=== PATIENT | male | born 1955 | race Caucasian/White ===

== ENCOUNTER 2024-01-17 18:36 | Emergency (ER) | payer SELFPAY ==
[2024-01-17 18:39] VITALS: BP 128/102
[2024-01-17 18:58] LABS: % Basophils 0.9 % (0-2); % Eosinophils 2.7 % (0-6); % Immature Granulocytes 0.6 % (0-0.5); % Lymphocytes 35.6 % (20.5-51.1); % Monocytes 7.9 % (1.7-9.3); % Neutrophils 52.3 % (42.2-75.2); Absolute Basophils 0.1 10^3/uL (0-0.2); Absolute Eosinophils 0.2 10^3/uL (0-0.7); Absolute Lymphocytes 2.4 10^3/uL (1.2-3.4); Absolute Monocytes 0.5 10^3/uL (0.1-0.6); Absolute Neutrophils 3.5 10^3/uL (1.4-6.5); Mean Corp Hgb Conc. 35.7 g/dL (33.0-37.0); Mean Corpuscular Hgb 32.5 pg (27.0-31.0); Mean Corpuscular Volume 91.1 fL (80.0-94.0); Mean Platelet Volume 8.7 fL (7.4-10.4); Nucleated Red Blood Cells % 0 % (-); Platelet Count 259 10^3/uL (130-400); Red Blood Cell Count 4.61 10^6/uL (4.70-6.10); Red Cell Dist. Width 12.4 % (11.5-14.5); White Blood Cell Count 6.6 10^3/uL (4.8-10.8)
[2024-01-17 19:10] LABS: Amphetamines Negative (Negative); Barbiturates Negative (Negative); Benzodiazepines Negative (Negative); Buprenorphine Negative (Negative); Cocaine Negative (Negative); Marijuana Negative (Negative); Methadone Negative (Negative); Methamphetamines Negative (Negative); Opiates Negative (Negative); Phencyclidine Negative (Negative); Tricyclic Antidepressants Negative (Negative)
[2024-01-17 19:12] LABS: Blood Urea Nitrogen 12 mg/dl (9-20); Carbon Dioxide 21 mmol/L (22-30); Chloride 107 mmol/L (98-107); Glucose 99 mg/dl (70-99); Potassium 4.6 mmol/L (3.5-5.1); Sodium 139 mmol/L (135-145); eGFR > 60.00
[2024-01-17 19:22] LABS: Alcohol 310 mg/dl
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
[2024-01-17 20:00] VITALS: BP 127/93
[2024-01-17] MEDS: VERSED 2 MG IM (20:01)
[2024-01-17 21:00] VITALS: BP 115/87
[2024-01-17 22:00] VITALS: BP 119/84
[2024-01-17] MEDS: ATIVAN 2 MG IV (23:34)
[2024-01-18] VITALS: BP 113/73
[2024-01-18 00:47] VITALS: BP 113/76
[2024-01-18] MEDS: MULTIVITAMIN 1011 ML IV (01:13)
[2024-01-18] MEDS: MULTIVITAMIN 1011 MG IV (01:13)
[2024-01-18 02:43] VITALS: BP 106/77
[2024-01-18 04:05] VITALS: BP 105/65
[2024-01-18 06:30] VITALS: BP 126/92
--- NOTE | 2024-01-18 07:05 | EDRN ---
Report received at shift change, pt is discharged, is able to go back to [facility] by [facility]. Pt ambulated with his walker with steady gait. Pt dressed, belongings given to patient, including 3 cellphones and foley.
== END 2024-01-18 07:19 | disposition home or self-care (01) ==
LOC: EMR 18:36
PROVIDERS: EMERGENCY PHYSICIAN Emergency Medicine
DX: F10.129 Alcohol abuse with intoxication, unspecified (principal)
CPT/HCPCS: 99283; 96374; 96372; 96361; 80048; 80306; 82077; 85025

== ENCOUNTER 2024-05-30 14:08 | Emergency (ER) | payer SELFPAY ==
[2024-05-30 14:28] VITALS: BP 129/77
[2024-05-30] MEDS: ATIVAN 2 MG IV (14:35)
--- NOTE | 2024-05-30 17:18 | ED.GENMED ---
History of Present Illness
General
Chief Complaint: Alcohol Problem
Time Seen by Provider: 05/30/24 14:31
History of Present Illness
History of Present Illness:
68-year-old male with reported history of alcohol abuse presenting after a fall. Patient was outside of a bar, had fallen, was belligerent, so medics called. Patient fell, striking his head in front of the medics. Patient confrontational on
arrival, does admit to alcohol abuse. No additional history obtained on arrival given patient's constitutional manner, cooperative
Past History
Past History
ED Past Medical History: Other (Alcoholism)
ED Past Surgical History: Other (Colon surgery)
Social History
Alcohol: Chronic alcoholic
Living: with roommate
Employment: Not employed
Phy Exam
Physical Exam
Physical Exam:
GENERAL: Alert , in no apparent distress
HEAD: 2 cm laceration above the right eyebrow
EYE: pupils equal and reactive
NECK: Supple, no significant adenopathy.
ENT: o/p clr, mmm.
CARDIAC: Regular rate and rhythm .
LUNGS: Clear breath sounds bilaterally, no acute respiratory distress, no wheezes/rales/rhonchi
ABDOMEN: Soft, without focal tenderness
NEUROLOGICAL: No focal neurologic deficit
SKIN: Warm and dry, skin intact.
MUSCULOSKELETAL: No edema, well perfused.
PSYCH: Normal and appropriate interaction.
Scores
Withdrawal Assessment of Alcohol
Withdrawal Assessment Completed?: Not applicable
Course
Orders/Labs/Results
Orders:
Orders
05/30/24 14:32
Lorazepam [Ativan] 2 mg IV NOW STA
05/30/24 15:03
CT Cervical Spine W/o Iv Contr Urgent
Comment:
Reason For Exam: fall, etoh
05/30/24 15:04
CT Head W/o Iv Contrast Urgent
Comment:
Reason For Exam: fall
05/30/24 18:35
Cervical Collar- Treatment ONCE
Collar Type: Soft Cervical Collar
Vital Signs
Initial and Last Documented VS:
Initial Vital Signs
Pulse Resp BP Pulse Ox
69 18 129/77 99
05/30/24 14:28 05/30/24 14:28 05/30/24 14:28 05/30/24 14:28
Last Documented Vital Signs
Pulse Resp BP Pulse Ox
78 18 129/77 95
05/30/24 18:16 05/30/24 14:28 05/30/24 14:28 05/30/24 18:16
Procedures
Laceration Closure
Right Upper Lateral Forehead:
Status of Wound: clean
Size of Wound in cm: 2
Preparation: cleaned with soap & water
Anesthesia: 1% Lidocaine
Type of Closure: single layer closure
Skin Closure Material: 5-0 prolene
Number of sutures: 4
MDM/Problems Addressed
MDM/Problems Addressed:
68-year-old male with history of alcohol abuse presenting after a witnessed fall outside of a bar. Vital signs are normal.
On exam, patient no acute distress, however belligerent requiring chemical sedation, unsuccessful verbal de-escalation. 2 mg of IM Ativan administered with appropriate response. Patient has head trauma, and given did not intoxication, plan for CT
brain and C-spine imaging. Patient admits to alcohol abuse prior to arrival. Additional advanced workup. Will continue to monitor for clinical sobriety
18:30 -CT brain without acute intracranial abnormality. CT cervical spine however is showing multilevel abnormality with concern for cord compression. Patient remains intoxicated, however denies any neck pain. Will discuss with neurosurgery at
[facility]
18:50-in discussion with Dr. Thorpe from [facility], plan for clearing collar once clinically sober, nothing operative on CT at this time.
20:15 -patient continues to clinically improve. Laceration repair. Please see procedure note. Again denies neck pain or numbness to his extremities. Will maintain cervical collar until clinically sober
21:00-patient up and ambulating. Collar removed, no tenderness of cervical spine. Again no focal neurologic deficits. Will stable for discharge. Alcohol cessation discussed. Return precautions indicated and patient verbalized understanding
*Critical Care Note
Total Time (30-74mins, 75-104mins- exclusive of procedures): Not Applicable
ED Attending Note
-
Portions of this chart may have been created with voice recognition software.� Occasional wrong word or��sound alike� substitutions may have occurred due to the inherent limitations of voice recognition software.
Discharge Plan
Departure
Patient Disposition: Home (Routine Discharge)
Date of Disposition: 05/30/24
Time of Disposition: 21:00
Patient with high blood pressure during this ER visit?: No
Condition: Good
Discharge Problem:
Alcohol intoxication, Facial laceration
Instructions: Alcohol Use Disorder (DC), Laceration
Prescriptions:
No Action
No Current Medications
0
Referrals:
UNKNOWN - PT NOT,INTERVIEWE [Family Provider] -
Activity Restrictions/Additional Instructions:
Please follow-up with your primary care doctor. Require suture removal in 5 to 7 days. Return to the emergency department with any development of headache, neck pain, numbness or tingling to your extremities, weakness or difficulty ambulating,
chest pain or difficulty breathing, development of fever
Interventions
Interventions:
*Risk Screen - Suicide Last Done: 05/30/24 15:30
*General Assessment Last Done: 05/30/24 15:30
*Neglect/Abuse Screening Last Done: 05/30/24 15:30
*ED COVID-19 Vaccine History Last Done: 05/30/24 15:30
*Nursing Disposition Last Done: 05/30/24 21:44
ED- Neurological Assessment Last Done: 05/30/24 14:38
ED-Psychological Assessment Last Done: 05/30/24 14:38
Discharge Date and Time
Discharge Date/Time: 05/30/24 21:45
Print Language: JORDANIAN
--- NOTE | 2024-05-30 21:43 | EDRN ---
PT CHANGED INDEPENDENTLY. AMBULATED WITH WATER AND STEADY GAIT ESCORTED BY SECURITY TO CALL FOR LYFT RIDE.
== END 2024-05-30 21:45 | disposition home or self-care (01) ==
LOC: EMR 14:08
PROVIDERS: EMERGENCY PHYSICIAN Student in an Organized Health Care Education/Training Program
DX: F10.229 Alcohol dependence with intoxication, unspecified (principal); S01.81XA Laceration without foreign body of other part of head, initial encounter; W18.30XA Fall on same level, unspecified, initial encounter; Y92.89 Other specified places as the place of occurrence of the external cause
CPT/HCPCS: 99284; 12011; 96374; 70450; 72125

== ENCOUNTER 2024-05-31 20:31 | Emergency (ER) | payer SELFPAY ==
[2024-05-31 20:35] VITALS: BP 100/74
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
== END 2024-05-31 21:30 ==
LOC: EMR 20:31
PROVIDERS: EMERGENCY PHYSICIAN Emergency Medicine
DX: F10.229 Alcohol dependence with intoxication, unspecified (principal); R45.1 Restlessness and agitation; Z65.3 Problems related to other legal circumstances
CPT/HCPCS: 99283

== ENCOUNTER 2024-06-01 01:25 | Emergency (ER) | payer SELFPAY ==
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
[2024-06-01 02:08] VITALS: BP 144/93
== END 2024-06-01 02:30 | disposition home or self-care (01) ==
LOC: EMR 01:25
PROVIDERS: EMERGENCY PHYSICIAN Student in an Organized Health Care Education/Training Program
DX: Z04.89 Encounter for examination and observation for other specified reasons (principal)
CPT/HCPCS: 99282

== ENCOUNTER 2024-11-28 09:34 | Emergency (ER) | payer OTHER, SELFPAY ==
[2024-11-28 09:50] VITALS: BP 114/81
--- NOTE | 2024-11-28 10:18 | ED.GENMED ---
History of Present Illness
General
Chief Complaint: Crisis Evaluation
Source: patient
Exam Limitations: none
Time Seen by Provider: 11/28/24 09:37
Nursing documentation reviewed up to this point in time: agreed with
History of Present Illness
History of Present Illness:
69-year-old male presents for evaluation apparently was argumentative with police getting off a train in [place] he tells me he tried to go to [place] on a train he speaks with pressured speech loudly, he is oriented, tells me that he is due
to get evicted from his home in a week or so, he is not happy about this, drinks alcohol states he is not drinking today,
Past History
Past History
ED Past Medical History: Other (Alcoholism)
ED Past Surgical History: Orthopedic (Right hip femoral neck repair) and Other (Colon surgery)
Social History
Tobacco: Non-smoker
Alcohol: Chronic alcoholic (Beer 1-2 )
Drug: None
Personal: Single
Living: with roommate
Employment: Not employed
Review of Systems
Review of Systems
All Other Systems: Not applicable
Psychiatric: Reports anxiety; Denies depression, suicidal or hallucinations
Phy Exam
Physical Exam
Physical Exam:
Physical Exam
General: Disheveled male but cooperative and redirectable
Neck: No jaundice
Heart: s1/s2 regular rate and rhythm, no murmur. equal radial pulses.
Lungs: no acute respiratory distress.
Neuro: alert and oriented. no focal neurological deficits
Skin: no rash
Psychiatric: Disheveled, cooperative not suicidal, angry that he is here
Extremities: no edema.
Course
Orders/Labs/Results
Orders:
Orders
11/28/24 10:32
PSYCHIATRY CONSULT Routine
Consulting Provider: Isaiah Rudolph
Was physician already notified: Yes
Vital Signs
Initial and Last Documented VS:
Initial Vital Signs
Temp Pulse Resp BP Pulse Ox
97.2 F 73 18 114/81 98
11/28/24 09:50 11/28/24 09:50 11/28/24 09:50 11/28/24 09:50 11/28/24 09:50
Last Documented Vital Signs
Temp Pulse Resp BP Pulse Ox
97.2 F 73 18 114/81 98
11/28/24 09:50 11/28/24 09:50 11/28/24 09:50 11/28/24 09:50 11/28/24 09:50
MDM/Problems Addressed
Differential Diagnosis Includes:
Anxiety, intoxication,
*Pulse Oximetry
Patient hypoxic: no
*Critical Care Note
Total Time (30-74mins, 75-104mins- exclusive of procedures): Not Applicable
Update Note
Update Note:
Update reviewed with [place] from crisis, 302 was completed by police, awaiting psychiatric evaluation
Patient seen by psychiatry cleared, going home via Lyft
ED Attending Note
-
Portions of this chart may have been created with voice recognition software.� Occasional wrong word or��sound alike� substitutions may have occurred due to the inherent limitations of voice recognition software.
Discharge Plan
Departure
Patient Disposition: Home (Routine Discharge)
Date of Disposition: 11/28/24
Time of Disposition: 11:38
Patient with high blood pressure during this ER visit?: No
Condition: Good
Discharge Problem:
Anxiety
Instructions: Anxiety, Adult (DC)
Prescriptions:
No Action
No Current Medications
0
Referrals:
UNKNOWN,NO INTERVIEW [Family Provider] -
Interventions
Interventions:
*Risk Screen - Suicide Last Done: 11/28/24 09:52
*General Assessment Last Done: 11/28/24 09:52
*ED COVID-19 Vaccine History Last Done: 11/28/24 09:50
ED-Psychological Assessment Last Done: 11/28/24 09:53
Discharge Date and Time
Print Language: WELSH
--- NOTE | 2024-11-28 13:52 | CS.PSYCHR ---
Consult Summary - Psychiatry
-
Pt is a 69 yo male, with history of alcohol use, brought in with back-up 302 petition written by police. Pt reportedly disruptive on [place] train, allegedly spilled beer. Police statement is vague, with no dangerous or threatening behavior noted,
only decreased hygiene apparently related to drinking. Pt seen, resting calmly on stretcher, answering questions, malodorous/smelling of urine. Pt speaks very loudly, but is cooperative, calm, coherent, somewhat repetitive. No labs done. Pt
denies any depression, denies suicidal/homicidal ideation.
Psych Hx: denied
Pt has ongoing alcohol use, record shows BAL 310 Jan 17, 2024 on ED visit
SH: pt reportedly lives in an apartment in [place], cannot drive due to hx of DUI's, takes Uber or [employer]
MSE: alert, oriented, calm, cooperative. Speech loud, coherent. No signs of psychosis. Denies S/H ideation. Insight limited
Imp: Alcohol Use d/o
Rec: Pt appears psychiatrically stable for discharge; does not present grounds for involuntary treatment
== END 2024-11-28 11:46 | disposition home or self-care (01) ==
LOC: EMR 09:34
PROVIDERS: CONSULT PHYSICIAN Psychiatry & Neurology Psychiatry; EMERGENCY PHYSICIAN Emergency Medicine
DX: F41.9 Anxiety disorder, unspecified (principal); F10.90 Alcohol use, unspecified, uncomplicated
CPT/HCPCS: 99283

== ENCOUNTER 2025-03-12 23:09 | Emergency (ER) | payer OTHER, SELFPAY ==
[2025-03-12 23:10] VITALS: BP 135/90
--- NOTE | 2025-03-12 23:19 | ED.MUSCINJ ---
HPI-Injury
General
Chief Complaint: Musculo-Skeletal Complaint
Source: patient
Exam Limitations: none
Time Seen by Provider: 03/12/25 23:17
Nursing documentation reviewed up to this point in time: agreed with
History of Present Illness-Injury
Initial Injury comments:
Pleasant 69-year-old male brought in by [facility] from [facility]. He allegedly was 'put into [facility] 'and he did not like [employer] [facility]. He began to protest by jumping up and down on the table. He was acting
aggressively in detention. He slipped from the table and landed on his right hip and knee. This was witnessed and he did not strike his head. He is here for medical clearance. Patient is very upset because he was incarcerated after being discharged
from a facility at [facility]. Patient states that he does not want to be in detention. Patient denies any other injury. He has ambulated after the fall to the ambulance.
Past History
Past History
ED Past Medical History: Other (Alcoholism)
ED Past Surgical History: Orthopedic (Right hip femoral neck repair) and Other (Colon surgery)
Social History
Tobacco: Non-smoker
Alcohol: Chronic alcoholic (Beer 1-2 )
Drug: None
Personal: Single
Living: with roommate
Employment: Not employed
Review of Systems
Review of Systems
Allergies reviewed?: Yes
Other source history: ambulance crew and guardian ([facility] guards)
All Other Systems: Not applicable
Constitutional: Reports no symptoms
Respiratory: Reports no symptoms
Cardiac: Reports no symptoms
ABD/GI: Reports no symptoms
: Reports no symptoms
Musculoskeletal: Reports joint pain, muscle pain and muscle stiffness
Skin: Reports no symptoms
Neurological: Reports no symptoms
Endocrine: Reports no symptoms
Hematologic/Lymphatic: Reports no symptoms
Psychiatric: Reports no symptoms
Phy Exam
General Physical Exam
General Presentation: well appearing
General age: appears older than age
General Skin: warm and dry
General Habitus: elderly
General Mental: alert
Neurological Exam
Neurological Exam: alert and oriented x3
Skin Exam
Skin Exam: normal color
Psychiatric Exam
Psychiatric Exam: normal mood/affect, agitated and labile
Injury Course
Orders/Labs/Results
Orders:
Orders
03/12/25 23:18
CR Hip - RT w/wo Pel 2-3 Vw* Urgent
Comment:
Reason For Exam: fell from table in detention
Include a pelvis x-ray?: Yes
Knee, Right 4 or More Views [CR Knee- Right 4 Or More View*] Urgent
Comment:
Reason For Exam: pain after falling, was ambulatory
*Radiology
Radiology exam reviewed: all reviewed NAD by ED Provider
*Pulse Oximetry
Patient hypoxic: no
*Critical Care Note
Total Time (30-74mins, 75-104mins- exclusive of procedures): Not Applicable
ED Attending Note
-
Portions of this chart may have been created with voice recognition software.� Occasional wrong word or��sound alike� substitutions may have occurred due to the inherent limitations of voice recognition software.
Discharge Plan
Departure
Patient Disposition: [facility]
Date of Disposition: 03/13/25
Time of Disposition: 00:06
Condition: Fair
Discharge Problem:
Musculoskeletal pain
Instructions: Muscle and Bone Pain (DC), Using Cold for Pain
Prescriptions:
No Action
No Current Medications
0
Activity Restrictions/Additional Instructions:
Patient is medically cleared for Incarceration
Your x-rays did not show any acute fracture.
Thank You for choosing [facility].
It was a pleasure meeting you and taking part in your care. We hope for your continued healing and wellness.
Please read discharge instructions in their entirety. However, they are for general education and may not describe your exact diagnosis at discharge. Information on your ER visit and medical conditions were discussed with you along with appropriate
follow up information...
If indicated, please take your medications as instructed and indicated on discharge paperwork.
Please schedule a follow up appointment as directed. Call to schedule an appointment
Please return to the emergency department with ANY change in, persisting, or worsening of symptoms. If any of your symptoms do not improve, or persist, or become more severe within 6-12 hours, please return to the emergency department for further
care.
Please return to the emergency department if you develop a headache, neck pain/stiffness, fever greater than 100.4F, chest pain, shortness of breath, persistent nausea, vomiting, slurred speech, difficulty walking, numbness/tingling, weakness, signs
of infection or any other symptoms that are worrisome to you.
If you have any questions or concerns please do not hesitate to call the Hospital at
Interventions
Interventions:
*Risk Screen - Suicide Last Done: 03/12/25 23:20
*General Assessment Last Done: 03/12/25 23:20
*Neglect/Abuse Screening Last Done: 03/12/25 23:20
*ED- Fall Risk Assessment Last Done: 03/12/25 23:20
ED-Musculoskeletal Assessment Last Done: 03/12/25 23:30
Discharge Date and Time
Print Language: CAYMAN ISLANDER
[2025-03-12 23:20] VITALS: BP 135/90
[2025-03-13 00:36] VITALS: BP 134/87
== END 2025-03-13 00:36 ==
LOC: EMR 23:09
PROVIDERS: EMERGENCY PHYSICIAN Student in an Organized Health Care Education/Training Program
DX: M25.551 Pain in right hip (principal); M79.661 Pain in right lower leg; M79.18 Myalgia, other site; W08.XXXA Fall from other furniture, initial encounter; R45.1 Restlessness and agitation; F10.20 Alcohol dependence, uncomplicated
CPT/HCPCS: 99283; 73502; 73564

== ENCOUNTER 2025-03-31 16:44 | Emergency (ER) | payer OTHER, SELFPAY ==
[2025-03-31 16:46] VITALS: BP 126/73
--- NOTE | 2025-03-31 19:46 | ED.GENMED ---
History of Present Illness
General
Chief Complaint: Suicidal Ideation
Source: patient and other (Nursing staff at [facility])
Time Seen by Provider: 03/31/25 17:09
History of Present Illness
History of Present Illness:
69-year-old male who apparently tried to hang himself clothing. He tied a knot around his neck. He had no hanging component and did not have to be saved from this episode. He states he fell and hit his back and right hip. No head injury neck
pain loss of consciousness or other complaints.
Past History
Past History
ED Past Medical History: Other (Alcoholism)
ED Past Surgical History: Orthopedic (Right hip femoral neck repair) and Other (Colon surgery)
Social History
Tobacco: Non-smoker
Alcohol: Chronic alcoholic (Beer 1-2 )
Drug: None
Personal: Single
Living: with roommate
Employment: Not employed
Review of Systems
Review of Systems
All Other Systems: Not applicable
Phy Exam
Physical Exam
Physical Exam:
GENERAL: Alert and oriented in no apparent distress. Normocephalic atraumatic
EYE: Orbits normal.
NECK: Supple, no signs of abrasion ecchymosis swelling
ENT: Pharynx without erythema. No drooling or stridor
CARDIAC: Regular rate and rhythm without any obvious murmurs.
LUNGS: Clear breath sounds,normal. Mild tenderness to the mid thoracic spine although no ecchymosis abrasion or swelling
ABDOMEN: Soft, without focal tenderness or distention
NEUROLOGICAL: Alert and oriented , grossly non-focal
SKIN: Warm and dry
MUSCULOSKELETAL: No edema,no deformity.Good color. No obvious point tenderness to the right hip. No pain with hip rotation. However patient states this is the area that hurts. Pelvis is stable.
PSYCH: Somewhat flight of ideas. Somewhat labile rambling speech
Course
Orders/Labs/Results
Orders:
Orders
03/31/25 17:41
CXR2 [CR Chest - 2 Views ] Urgent
Comment:
Reason For Exam: Mid back trauma
Hip, Right 2-3 Views [CR Hip - RT w/wo Pel 2-3 Vw*] Urgent
Comment:
Reason For Exam: trauma
Include a pelvis x-ray?: Yes
Vital Signs
Initial and Last Documented VS:
Initial Vital Signs
Temp Pulse Resp BP Pulse Ox
98.1 F 75 20 126/73 98
03/31/25 16:46 03/31/25 16:46 03/31/25 16:46 03/31/25 16:46 03/31/25 16:46
Last Documented Vital Signs
Temp Pulse Resp BP Pulse Ox
98.1 F 60 20 152/88 98
03/31/25 16:46 03/31/25 19:55 03/31/25 19:55 03/31/25 19:55 03/31/25 19:55
MDM/Problems Addressed
Differential Diagnosis Includes:
Discussed with the staff at the facility[facility]. I do not feel this was any significant neck injury trauma or suffocation. Clinically there is absolutely no findings to support a serious issue. Patient was not hanging. Also no signs of other
significant trauma. I discussed suicidal ideation which they do and can continue to do at the present.
*Radiology
Radiology exam reviewed: radiology read reviewed (No acute findings)
*Pulse Oximetry
Patient hypoxic: no
*Critical Care Note
Total Time (30-74mins, 75-104mins- exclusive of procedures): Not Applicable
ED Attending Note
-
Portions of this chart may have been created with voice recognition software.� Occasional wrong word or��sound alike� substitutions may have occurred due to the inherent limitations of voice recognition software.
Discharge Plan
Departure
Patient Disposition: [facility]
Date of Disposition: 03/31/25
Time of Disposition: 19:49
Patient with high blood pressure during this ER visit?: Yes
Discharge Problem:
Multiple contusions, Suicide attempt
Instructions: Suicide Prevention, BLOOD PRESSURE, Contusion
Prescriptions:
No Action
No Current Medications
0
Referrals:
[facility] [Family Provider] -
Activity Restrictions/Additional Instructions:
Patient should remain on suicide watch until cleared
Interventions
Interventions:
*Risk Screen - Suicide Last Done: 03/31/25 16:46
*General Assessment Last Done: 03/31/25 16:46
*Neglect/Abuse Screening Last Done: 03/31/25 16:46
*Nursing Disposition Last Done: 03/31/25 19:55
ED-Psychological Assessment Last Done: 03/31/25 17:00
Discharge Date and Time
Discharge Date/Time: 03/31/25 19:56
Print Language: BOLIVIAN
[2025-03-31 19:55] VITALS: BP 152/88
== END 2025-03-31 19:56 ==
LOC: EMR 16:44
PROVIDERS: EMERGENCY PHYSICIAN Emergency Medicine
DX: T14.91XA Suicide attempt, initial encounter (principal); M25.551 Pain in right hip; T14.8XXA Other injury of unspecified body region, initial encounter; X83.8XXA Intentional self-harm by other specified means, initial encounter; W19.XXXA Unspecified fall, initial encounter; R03.0 Elevated blood-pressure reading, without diagnosis of hypertension
CPT/HCPCS: 99283; 71046; 73502

== ENCOUNTER 2025-04-06 16:04 | Emergency (ER) | payer OTHER, SELFPAY ==
[2025-04-06] VITALS (7 sets, daily range): BP systolic 123–142; BP diastolic 82–99; BMI 17.3
--- NOTE | 2025-04-06 16:29 | ED.GENMED ---
History of Present Illness
General
Chief Complaint: Musculo-Skeletal Complaint
Source: patient
Exam Limitations: none
Time Seen by Provider: 04/06/25 16:20
History of Present Illness
History of Present Illness:
See MDM
Past History
Past History
ED Past Medical History: Other (Alcoholism)
ED Past Surgical History: Orthopedic (Right hip femoral neck repair) and Other (Colon surgery)
Social History
Tobacco: Non-smoker
Alcohol: Chronic alcoholic (Beer 1-2 )
Drug: None
Personal: Single
Living: with roommate
Employment: Not employed
Phy Exam
Physical Exam
Physical Exam:
See MDM
Course
Orders/Labs/Results
Orders:
Orders
04/06/25 16:24
Ibuprofen [Motrin] 600 mg PO NOW STA
Magnesium Citrate [Citroma] 300 ml PO ONCE ONE
Elbow, Left [CR Elbow - Left Min 3 Views ] Urgent
Comment:
Reason For Exam: fall, Left elbow pain
Hand, Left 3 View [CR Hand - Left Min 3 Views] Urgent
Comment:
Reason For Exam: fall, left hand pain
04/06/25 16:28
Forearm, Left 2 View [CR Forearm - Left 2 View] Urgent
Comment:
Reason For Exam: fall, left forearm pain
Vital Signs
Initial and Last Documented VS:
Initial Vital Signs
BP
130/82
04/06/25 16:12
Last Documented Vital Signs
Temp Pulse Resp BP Pulse Ox
98.2 F 64 12 123/93 98
04/06/25 16:16 04/06/25 17:00 04/06/25 16:31 04/06/25 17:00 04/06/25 16:16
MDM/Problems Addressed
Differential Diagnosis Includes:
HPI and MDM Narrative:
69-year-old male prisoner presenting from [facility] for evaluation of persistent left arm pain. Patient states he had a fall a few days ago and complains mostly of left elbow and forearm pain. On exam, he does have swelling
and bruising to the area. The extremity is neurovascularly intact. He has complaints of headache, neck pain, constipation, bilateral hip pain and right ankle pain. Those injuries are distractible. I can palpate the area without discomfort. He
is moving all extremities without difficulty.
Given the bruising and tenderness to left forearm and elbow, will obtain x-rays. He states he is taking laxatives without difficulty although there is stool noted. Will give dose of magnesium citrate. His abdomen is soft and nontender and there
is no clinical evidence small bowel obstruction
Physical exam
General: Well appearing and non-toxic
HEENT: protecting airway
Neck: Nontender, supple
CV: No evidence of cyanosis
Resp: No accessory muscle use
Abd: Non-distended. Soft and nontender
Extremities: Bruising and swelling noted to left elbow to dorsum of left hand. Patient claims he cannot move it but he is talking and moving his left arm without difficulty. All extremities neurovascularly intact
Neuro: alert
Psych: Normal affect
Skin: Intact
Problems Addressed including Acute and Chronic Conditions affecting care:
1. Left arm injury
Acuity: acute
Prognosis: stable
Details: Will obtain x-rays to rule out fracture
2. Constipation
Acuity: acute
Prognosis: stable
Details: Abdomen soft and nontender. Will give dose of magnesium citrate
Updates
X-rays without obvious fracture. Patient continues to move his hand without difficulty. He drank the magnesium citrate without difficulty. Discussed return precautions
Differential Diagnosis (but not limited to): DVT, forearm fracture
Testing considered: Ultrasound DVT rule out but will defer if there is any fracture
Drug therapy (if applicable): OTC meds, please see d/c instruction regarding Rx drugs
Amount and/or Complexity of Data Reviewed
Clinical info obtained from: Patient
External data reviewed: N/A
Labs I independently reviewed (but not limited to): N/A
Radiology: N/A
Pulse Ox: not hypoxic
EKG independently reviewed: N/A
Director Information Security: N/A
Critical Care: N/A
Risk of Complication:
Social Determinants of health: Good social support
Discussed with other providers: N/A
Escalation of Care includes Admit/Obs: After being observed in the Emergency Department, pt stable for discharge.
Occasional wrong word or 'sound a like' substitutions may have occurred due to the inherent limitations of voice recognition software. Read the chart carefully and recognize, using context, where substitutions have occurred.
*Critical Care Note
Total Time (30-74mins, 75-104mins- exclusive of procedures): Not Applicable
ED Attending Note
-
Portions of this chart may have been created with voice recognition software.� Occasional wrong word or��sound alike� substitutions may have occurred due to the inherent limitations of voice recognition software.
Discharge Plan
Departure
Patient Disposition: Senior Living
Date of Disposition: 04/06/25
Time of Disposition: 17:10
Patient with high blood pressure during this ER visit?: No
Discharge Problem:
Contusion of arm, left
Prescriptions:
No Action
No Current Medications
0
Referrals:
[facility] [Family Provider] -
Activity Restrictions/Additional Instructions:
Trevor Trivedi is medically stable for transfer back to [facility].
If symptoms persist, please consider outpatient ultrasound to rule out blood clot.
Interventions
Interventions:
*Risk Screen - Suicide Last Done: 04/06/25 16:10
*General Assessment Last Done: 04/06/25 16:10
*Neglect/Abuse Screening Last Done: 04/06/25 16:10
*ED- Fall Risk Assessment Last Done: 04/06/25 16:10
*ED COVID-19 Vaccine History Last Done: 04/06/25 16:10
ED-Musculoskeletal Assessment Last Done: 04/06/25 16:15
Discharge Date and Time
Print Language: MONGOLIAN
[2025-04-06] MEDS: MOTRIN 600 MG PO (16:59)
[2025-04-06] MEDS: CITROMA 300 ML PO (16:59)
== END 2025-04-06 17:34 ==
LOC: EMR 16:04
PROVIDERS: EMERGENCY PHYSICIAN Student in an Organized Health Care Education/Training Program
DX: S50.12XA Contusion of left forearm, initial encounter (principal); W19.XXXA Unspecified fall, initial encounter; K59.00 Constipation, unspecified
CPT/HCPCS: 99283; 73080; 73090; 73130

== ENCOUNTER 2025-06-06 02:29 | Emergency (ER) | payer OTHER, SELFPAY ==
[2025-06-06 02:30] VITALS: BP 136/88
--- NOTE | 2025-06-06 04:28 | ED.GENMED ---
History of Present Illness
General
Chief Complaint: Social Service Referral
Source: patient
Exam Limitations: none
Time Seen by Provider: 06/06/25 04:23
History of Present Illness
History of Present Illness:
See MDM
Past History
Past History
ED Past Medical History: Other (Alcoholism)
ED Past Surgical History: Orthopedic (Right hip femoral neck repair) and Other (Colon surgery)
Social History
Tobacco: Non-smoker
Alcohol: Chronic alcoholic (Beer 1-2 )
Drug: None
Personal: Single
Living: with roommate
Employment: Not employed
Phy Exam
Physical Exam
Physical Exam:
See MDM
Course
Vital Signs
Initial and Last Documented VS:
Initial Vital Signs
Temp Pulse Resp BP Pulse Ox
97.4 F 85 20 136/88 98
06/06/25 02:30 06/06/25 02:30 06/06/25 02:30 06/06/25 02:30 06/06/25 02:30
Last Documented Vital Signs
Temp Pulse Resp BP Pulse Ox
97.4 F 85 20 136/88 98
06/06/25 02:30 06/06/25 02:30 06/06/25 02:30 06/06/25 02:30 06/06/25 02:30
MDM/Problems Addressed
Differential Diagnosis Includes:
Note:
CHIEF COMPLAINT(S)
The patient presented to the emergency department primarily due to homelessness and difficulty accessing jail.
HISTORY OF PRESENT ILLNESS
The patient is a 69-year-old male with no direct mention of past medical history who arrived at the emergency department because of a lack of jail. The patient explained that he has no place to sleep as his debit card is insufficient to secure a
motel room. The patient stated that his sand polisher, who is also his payee, was supposed to transfer funds to his account but they were not received as expected. Consequently, the police advised the patient to either wait at a bus stop or come to the
hospital. The patient was brought to the emergency department by ambulance after the police facilitated transport. He mentioned that he does have a jail in [place] but has no means of getting there.
SOCIAL DETERMINANTS AFFECTING HEALTH
The patient reports financial difficulties, as evidenced by the inability to access his funds for a motel. He is also experiencing housing instability, highlighted by the lack of a place to sleep and lack of transportation to a jail in [place].
This situation was compounded by the failure of a scheduled financial transfer from his sand polisher, who acts as his payee.
Physical exam
General: Disheveled
HEENT: protecting airway
Neck: appears supple
CV: No evidence of cyanosis
Resp: No accessory muscle use
Abd: Non-distended
Extremities: No deformities
Neuro: alert
Psych: Normal affect
Skin: Intact
Problems Addressed including Acute and Chronic Conditions affecting care:
1. Homelessness
Acuity: Chronic
Prognosis: stable
Details: Per patient, will keep the emergency department until morning
Updates
Testing considered: Blood work
Drug therapy (if applicable): OTC meds, please see d/c instruction regarding Rx drugs
Amount and/or Complexity of Data Reviewed
Clinical info obtained from: Patient
External data reviewed: N/A
Labs I independently reviewed (but not limited to): N/A
Radiology: N/A
Pulse Ox: not hypoxic
EKG independently reviewed: N/A
Radiological Defense Officer: N/A
Critical Care: N/A
Risk of Complication:
Social Determinants of health: Poor social support
Discussed with other providers: N/A
Escalation of Care includes Admit/Obs: After being observed in the Emergency Department, pt stable for discharge.
Occasional wrong word or 'sound a like' substitutions may have occurred due to the inherent limitations of voice recognition software. Read the chart carefully and recognize, using context, where substitutions have occurred.
*Pulse Oximetry
SaO2: 98
Patient hypoxic: no
*Critical Care Note
Total Time (30-74mins, 75-104mins- exclusive of procedures): Not Applicable
ED Attending Note
-
Portions of this chart may have been created with voice recognition software.� Occasional wrong word or��sound alike� substitutions may have occurred due to the inherent limitations of voice recognition software.
Discharge Plan
Departure
Patient Disposition: Other
Date of Disposition: 06/06/25
Time of Disposition: 04:37
Discharge Problem:
Unhoused person
Prescriptions:
No Action
No Current Medications
0
Discharge Date and Time
Print Language: HONDURAN
--- NOTE | 2025-06-06 08:05 | CM ---
Received CM consult. I met with pt bedside in ED. Pt states he has a room at the [facility] in [place] but does not have money to get himself there. He also showed me his phone with message from his household appliances salesperson saying that money was deposited yesterday
but he cannot access it. I encouraged him to call his household appliances salesperson to follow up. While I was setting up a LYFT for pt [place] Police came to the ED, per RN pt had called 911 several times from ED, pt left with police.
== END 2025-06-06 08:08 | disposition home or self-care (01) ==
LOC: EMR 02:29
PROVIDERS: EMERGENCY PHYSICIAN Student in an Organized Health Care Education/Training Program
DX: Z04.89 Encounter for examination and observation for other specified reasons (principal); Z59.02 Unsheltered homelessness; Z59.86 Financial insecurity
CPT/HCPCS: 99282